=== PATIENT | female | born 1955 | race Hispanic/Latino ===

== ENCOUNTER 2025-06-01 08:02 | Observation (INO) | payer OTHER ==
[2025-05-30 11:11] VITALS: BP 134/69; PULSE 56; RESP 15; TEMP 97.9
[2025-05-30 11:17] LABS: IMMATURE GRANULOCYTE ABSOLUTE 0.01 K/uL (0-1); NUCLEATED RED BLOOD CELLS 0.0 % (0.0-0.19); PLATELET COUNT (AUTO) 242 K/uL (130-400); RED BLOOD CELL COUNT(AUTO) 4.70 MIL/uL (4.00-5.50); RED CELL DISTRIBUTION WIDTH 12.0 % (11.0-15.5); WHITE BLOOD COUNT (AUTO) 4.7 K/uL (4.8-10.8)
[2025-05-30 11:28] LABS: INR 1.05 (0.85-1.15)
[2025-05-30 11:30] LABS: CREATININE 1.1 mg/dL (0.5-1.0); GLOMERULAR FILTR. RATE CALC 54.0 mL/min (>90); GLUCOSE,RANDOM 93.0 mg/dL (70-105); SODIUM SERUM 142.0 mmol/L (136-145); UREA NITROGEN, BLOOD 12.0 mg/dL (7-18)
--- NOTE | 2025-05-30 11:55 | NUR ---
PREOP INCENTIVE SPIROMETRY INITIAL TEACHING DONE BY ISSA COX
[~2025-06-01] VITALS: Ht 167.6 cm; Wt 72.1 kg
[2025-06-01] VITALS (38 sets, daily range): BP systolic 109–147; BP diastolic 42–76; PULSE 45–66; RESP 10–20; TEMP 97.1–98.3; O2SAT 98
[~2025-06-01 08:02] MED LIST: BRIM5DRO5 OU; LATA2.5D7 OU
[2025-06-01] MEDS: LACTATED RINGERS 1000ML 1,000 ML IV ONE (08:56)
[2025-06-01] MEDS: GABAPENTIN 300 MG CAPSULE ONE (08:56)
[2025-06-01] MEDS: FAMOTIDINE 20MG VIAL IV ONE (10:17)
[2025-06-01] MEDS ORDERED: LIDOCAINE PF 100MG/5ML (2%) SYRINGE 5ML ONE (10:32)
[2025-06-01] MEDS: TRANEXAMIC ACID 1000MG/10ML ONE (11:10)
[2025-06-01] MEDS ORDERED: NEOSTIGMINE METHYLSULFATE 1MG/ML IV ONE (11:17)
[2025-06-01] MEDS ORDERED: GLYCOPYRROLATE 0.2 MG/ML 5 ML VIAL ONE (11:17)
[2025-06-01] MEDS ORDERED: PoTASSium chl 10% ELIXIR 20MEQ 20 MEQ/15 ML UDCUP PO PRN (11:30)
[2025-06-01] MEDS ORDERED: FERROUS FUMARATE 324 MG TABLET PO PRN (11:30)
[2025-06-01] MEDS ORDERED: CALCIUM CARB 500MG PO PRN (11:30)
[2025-06-01] MEDS ORDERED: HYDROcodone/APAP 5/325 1 TAB TABLET PO PRN (11:30)
--- NOTE | 2025-06-01 13:15 | OP ---
Operative Note: DATE OF PROCEDURE: 06/01/25 PREOPERATIVE DIAGNOSIS: Left knee osteoarthritis. POSTOPERATIVE DIAGNOSIS: Left knee osteoarthritis. PROCEDURE PERFORMED: Left knee total knee arthroplasty. SURGEON: Jaye Harman MD TARIFF INSPECTOR: Kathy Johnston and Alton Villagomez. ANESTHESIA: General with adductor canal block. ANESTHESIA: JANENE [place]. ESTIMATED BLOOD LOSS: 50cc. COMPLICATIONS: None. DRAINS: None. SPECIMENS REMOVED: resected bone. Not sent to pathology. IMPLANTS: Weeks and Nephew Journey II BCS size 3 Oxinium femur, size 3 tibial base plate, 35 mm patella, 11 mm polyethylene STATEMENT OF MEDICAL NECESSITY: The patient is a 69-year-old female who suffers from left knee osteoarthritis failing conservative management. After discussion of the risks, benefits, and alternatives with the patient, they voluntarily agreed to undergo the aforementioned procedure. DESCRIPTION OF PROCEDURE: Patient was properly identified in the preoperative holding area. Surgical site marking was verified and surgery consent reviewed. The patient was then taken to the operating room and placed in supine position on the OR table. After induction of general anesthesia, preoperative antibiotics were given, all bony prominences were well-padded, and a well padded tourniquet was applied but not inflated at this time. The left lower extremity was then prepped and draped in usual sterile fashion. Surgical time out was done verifying correct surgery, side, site, and location to be performed. We then began the procedure by exsanguinating the limb using an Esmarch and inflating the tourniquet to 350 mmHg. At this point, we made an anterior midline incision using a 10 blade, coming down sharply the level of the fascia. Skin flaps were elevated medially and laterally. We then obtained a clean 10 blade and performed a standard medial parapatellar arthrotomy. We excised the infrapatellar fat pad. We performed our soft tissue releases off of the tibia. We transected the ACL and removed the anterior portion of the medial & lateral meniscus. We then brought the knee into hyperflexion with the patella everted. We used our entry reamer to enter the femoral canal. We then placed our intramedullary cutting guide for our distal femoral cutting block. We then performed our distal femoral osteotomy ensuring appropriate rotation and removed the bony wafer. We then removed these pins and block and then used jig 2 to size the distal femur with the after mentioned size found. We then placed our 5-in-1 cutting block in 3 degrees of external rotation and took our 5 cuts ensuring to protect the patellar tendon and the collateral ligaments. We then removed the cutting block and our bony fragments using a curved osteotome. We then placed our PCL retractor subluxating the tibia anteriorly. Using an extra medullary tibial cutting guide, we hung the block for our proximal tibial cut taking 2 mm off the more diseased portion. Prior to pinning this block in place, we ensured appropriate varus/valgus alignment and posterior slope similar to the [place] slope of the patient's knee. We then performed our proximal tibia l osteotomy and removed the bony wafer using Bovie electrocautery to release any remaining soft tissue attachments. We then used our tibial sizing paddle and checked once more for varus & valgus alignment and found this to be appropriate. At this point, we pinned our tibial paddle in place. We then removed the PCL retractor and subluxated the tibia posteriorly while we placed our femoral trial component. We then finished preparing the notch with the reamer and box chisel. The notch portion of the trial femoral component was then placed. A posterior stabilized polyethylene, size 9 trial was placed. This was immediately increase d up to a size 10 due to laxity with varus and valgus stressing. The knee was then taken through range of motion and found to have stable full range of motion. We then placed a bump under the ankle and everted the patella to perform our freehand cut of the undersurface the patella. We then sized our patella and reamed to the lug holes for this. We placed our trial patellar comp onent and begin to take the knee through range of motion. The patella had appropriate tracking. At this point we began removing our trial components and punched the tibial keel prior to removing our tibial trial component. Final components were opened and cement was mixed on the back table while we injected local cocktail in the posterior capsule. We then thoroughly irrigated out the bone and dried the bony surfaces. We cemented our tibial component in place ensuring to remove excess cement and placed our trial polyethylene. We then cemented our femoral component in place once again taking time to ensure excess cement was removed leg was brought into full extension to help squeeze the excess cement from around the femoral component. We then brought the knee back in a flexion to remove this portion of the cement at this point we placed the ankle in a bump thoroughly irrigated off the patellar component and cemented our patellar component in standard fashion again removing excess cement. While we waited for the cement to cure, we thoroughly irrigated out the wound with normal saline. Once our cement had cured, we took the knee through a range of motion and found full and stable range of motion. We then elected to use the size 11 polyethylene and removed our trial polyethylene. We impacted our final polyethylene component in place in standard fashion and took the knee through a range of motion check once more. This was satisfactory so we began to repair the arthrotomy using #5 Ethibond and #1 Vicryl in interrupted [id number] fashion. Subcutaneous tissue was repaired using 2-0 Vicryl. Running subcuticular 3-0 Monocryl stitch with Dermabond placed over this for the skin. We then applied a foam barrier dressing and a pressure dressing consisting of 4 x 4's fluffs and an Ross wrap. The tourniquet was then deflated. Patient was awakened from anesthesia, and they were taken to the recovery room in stable condition. JAYE HARMAN MD Jun 01, 2025 13:15
--- NOTE | 2025-06-01 15:13 | HMCIMG ---
Examination: Left knee, 2 views Clinical history: Status post left total knee surgery Comparison: None Findings: AP, lateral views of the left knee are submitted. Cemented left total knee arthroplasty is in near anatomic alignment. No periprosthetic fractures appreciated. Appropriate postsurgical changes about the left knee. Knee joint effusion. Impression: Cemented left total knee arthroplasty is in near anatomic alignment with no periprosthetic fracture. Appropriate postsurgical changes about the knee joint. /[place]
[2025-06-01] MEDS: 0.9%NACL 1000ML 1,000 ML IV SCH (17:10)
--- NOTE | 2025-06-01 17:30 | NUR ---
Ortho Coordinator: Teaching regarding DVT and pneumonia prevention, pain expectations and pain management. Patient in bed, family member at bedside. B SCD sleeves in place and functioning. Incentive spirometer at bedside. Patient returned demonstrated proper use of incentive spirometer and verbalized frequency of use. Patient return demonstrated proper foot flexion and extension exercises, rationale for performing provided. Pain management strategy reviewed, pain medications reviewed. Patient instructed to perform self pain assessments every four hours, providing a numeric pain rating and type of pain to primary nurse. Patient reminded she must call for pain medication and can call at anytime. Set expectation for patient to shower, rationale provided. Requested home caregiver be present to observe shower, rationale provided. Patient intends to discharge home with home health physical therapy. Reviewed home health process. Patient and family member verbalized understanding to all instructions. Patient instructed must call for assistance to restroom overnight, rationale provided, gait belt reviewed. No additional questions or concerns at this time.
--- NOTE | 2025-06-01 18:07 | NUR ---
PT approached for Eval, RR call light on .Pt noted to be walking herself from RR with SW, no gait belt, no assist. Education provided on calling for help, and the risk of a fall. Education on pain mgt, POC and DC planning given. All questions answered. Fall alarm, ice and SCDs placed.
[2025-06-01] MEDS: HYDROcodone/APAP 5/325 1 TAB TABLET PO PRN ×2 (18:19→21:08)
[2025-06-01] MEDS: LATANOPROST 2.5 ML DROPS OU SCH (21:00)
[2025-06-01] MEDS: CYCLOBENZAPRINE HCL 10 MG TABLET PO PRN (21:10)
[2025-06-02] VITALS: BP 107/58; PULSE 68; RESP 18; TEMP 98.3
[2025-06-02 04:00] VITALS: BP 142/65; PULSE 60; RESP 19; TEMP 98.5
[2025-06-02 04:45] LABS: NUCLEATED RED BLOOD CELLS 0.0 % (0.0-0.19); PLATELET COUNT (AUTO) 202.0 K/uL (130-400); RED BLOOD CELL COUNT(AUTO) 3.45 MIL/uL (4.00-5.50); RED CELL DISTRIBUTION WIDTH 12.1 % (11.0-15.5); WHITE BLOOD COUNT (AUTO) 7.1 K/uL (4.8-10.8)
[2025-06-02 05:09] LABS: CREATININE 1.1 mg/dL (0.5-1.0); GLOMERULAR FILTR. RATE CALC 54.0 mL/min (>90); GLUCOSE,RANDOM 122.0 mg/dL (70-105); SODIUM SERUM 142.0 mmol/L (136-145); UREA NITROGEN, BLOOD 10.0 mg/dL (7-18)
[2025-06-02] MEDS: PoTASSium chloRIDE 20MEQ ER 20 MEQ ERTAB PO PRN (05:31)
[2025-06-02 08:00] VITALS: BP 96/56; PULSE 57; RESP 18; TEMP 97.7; O2SAT 99
--- NOTE | 2025-06-02 08:20 | PN ---
Ortho postop day one. This morning the patient is awake alert and oriented. She is seated out of the bed resting comfortably alternating extending and flexing of the extremity on a footstool. There is ice present. The Ross bandage has been removed. The dressing is intact. Gastrocnemius a soft nontender. Negative Homans. Vital signs have remained stable. Afebrile. Voiding on her own without difficulty and already passing gas but yet to have BM. Laboratory results reviewed. Noted to have a drop in hemoglobin and hematocrit as expected after TKA. Patient is asymptomatic at this time we will continue to observe and treat per protocol. Reinforced incentive spirometry. SCD sleeves are present in the room but not currently on. Yesterday she ambulated about 20 ft with physical therapy. She is pending further physical therapy this morning. The anticipated discharge goal is home health/PT. Assessment: Status post left TKA. Acute postoperative blood loss anemia Plan: Continue with Dr. Harman's TKA protocol and discharge planning. Acute postoperative blood loss anemia addressed with the protocol as necessary Vitals/Labs Vital Signs Date Time Temp Pulse Resp B/P (MAP) Pulse Ox O2 Delivery O2 Flow Rate FiO2 06/02/25 04:00 98.4 60 19 142/65 96 Room Air 06/01/25 20:00 0 21 Laboratory Tests 06/02/25 04:33 Medications Current Medications Cefazolin Sodium 2 gm STK-MED ONCE .ROUTE Last administered on 06/01/25at 11:15; Start 06/01/25 at 08:27; Stop 06/01/25 at 08:27; Status DC Gabapentin 300 mg STK-MED ONCE .ROUTE Last administered on 06/01/25at 08:56; Start 06/01/25 at 08:27; Stop 06/01/25 at 08:28; Status DC Lactated Ringer's 1,000 ml @ As Directed STK-MED ONCE IV Last administered on 06/01/25at 08:56; Start 06/01/25 at 08:27; Stop 06/01/25 at 08:28; Status DC Tranexamic Acid 1,000 mg STK-MED ONCE .ROUTE Last administered on 06/01/25at 11:10; Start 06/01/25 at 10:16; Stop 06/01/25 at 10:16; Status DC Ketorolac Tromethamine 30 mg STK-MED ONCE .ROUTE Last administered on 06/01/25at 11:53; Start 06/01/25 at 10:16; Stop 06/01/25 at 10:16; Status DC Ropivacaine 150 mg STK-MED ONCE .ROUTE Last administered on 06/01/25at 11:54; Start 06/01/25 at 10:16; Stop 06/01/25 at 10:17; Status DC Acetaminophen 100 ml @ As Directed STK-MED ONCE .ROUTE; Start 06/01/25 at 10:17; Stop 06/01/25 at 10:17; Status DC Famotidine 20 mg STK-MED ONCE IV; Start 06/01/25 at 10:17; Stop 06/01/25 at 10:17; Status DC Dexmedetomidine HCl 200 mcg STK-MED ONCE IV; Start 06/01/25 at 10:20; Stop 06/01/25 at 10:20; Status DC Ropivacaine 150 mg STK-MED ONCE .ROUTE; Start 06/01/25 at 10:20; Stop 06/01/25 at 10:21; Status DC Ketamine HCl 50 mg STK-MED ONCE .ROUTE; Start 06/01/25 at 10:21; Stop 06/01/25 at 10:21; Status DC Lidocaine HCl 100 mg STK-MED ONCE .ROUTE; Start 06/01/25 at 10:32; Stop 06/01/25 at 10:33; Status DC Propofol 200 mg STK-MED ONCE IV; Start 06/01/25 at 10:33; Stop 06/01/25 at 10:33; Status DC Rocuronium [place] 50 mg STK-MED ONCE .ROUTE; Start 06/01/25 at 10:33; Stop 06/01/25 at 10:33; Status DC Fentanyl Citrate 100 mcg STK-MED ONCE .ROUTE; Start 06/01/25 at 10:33; Stop 06/01/25 at 10:33; Status DC Glycopyrrolate 1 mg STK-MED ONCE .ROUTE; Start 06/01/25 at 11:17; Stop 06/01/25 at 11:17; Status DC Neostigmine Methylsulfate 10 mg STK-MED ONCE IV; Start 06/01/25 at 11:17; Stop 06/01/25 at 11:17; Status DC Sodium Chloride 1,000 ml @ 100 mls/hr Q10H IV Last administered on 06/01/25at 17:10; Start 06/01/25 at 11:30; Stop 06/02/25 at 11:29 Polyethylene Glycol 17 gm DAILY PO; Start 06/02/25 at 09:00; Stop 07/02/25 at 08:59 Bisacodyl 10 mg DAILY PRN RC; Start 06/04/25 at 11:30; Stop 07/04/25 at 11:29 Ketorolac Tromethamine 15 mg Q6H PRN IV; Start 06/02/25 at 11:30; Stop 06/07/25 at 11:29 Ferrous Fumarate 324 mg DAILY PRN PO; Start 06/01/25 at 11:30; Stop 07/01/25 at 11:29 Ondansetron HCl 4 mg Q6H PRN IVP; Start 06/01/25 at 11:30; Stop 07/01/25 at 11:29 Calcium Carbonate 500 mg Q12H PRN PO; Start 06/01/25 at 11:30; Stop 07/01/25 at 11:29 Cefazolin Sodium 2 gm Q8H IVP Last administered on 06/02/25at 00:10; Start 06/01/25 at 16:30; Stop 06/02/25 at 00:31; Status DC Cyclobenzaprine HCl 5 mg Q8H PRN PO Last administered on 06/01/25at 21:10; Start 06/01/25 at 11:30; Stop 07/01/25 at 11:29 Gabapentin 100 mg TID PO Last administered on 06/01/25at 21:07; Start 06/01/25 at 14:00; Stop 07/01/25 at 13:59 Aspirin 325 mg DAILY PO; Start 06/02/25 at 09:00; Stop 07/02/25 at 08:59 Ketorolac Tromethamine 15 mg Q8H IV Last administered on 06/02/25at 04:58; Start 06/01/25 at 11:30; Stop 06/02/25 at 03:31; Status DC Docusate Sodium 100 mg BID PO Last administered on 06/01/25at 21:07; Start 06/01/25 at 21:00; Stop 07/01/25 at 20:59 Potassium Chloride 100 ml @ 100 mls/hr AD PRN IV; Start 06/01/25 at 11:30; Stop 07/01/25 at 11:29 Potassium Chloride 20 meq AD PRN PO; Start 06/01/25 at 11:30; Stop 07/01/25 at 11:29 Potassium Chloride 20 meq AD PRN PO Last administered on 06/02/25at 05:31; Start 06/01/25 at 11:30; Stop 07/01/25 at 11:29 Tramadol HCl 50 mg Q6H PRN PO Last administered on 06/02/25at 01:54; Start 06/01/25 at 11:30; Stop 06/06/25 at 11:29 Acetaminophen/ Hydrocodone Bitart Q4H PRN PO; Start 06/01/25 at 11:30; Stop 06/01/25 at 11:30; Status DC Latanoprost 1 DROP HS OU; Start 06/01/25 at 21:00; Stop 07/01/25 at 20:59 Ketorolac Tromethamine 15 mg STK-MED ONCE .ROUTE; Start 06/01/25 at 14:02; Stop 06/01/25 at 14:03; Status DC Acetaminophen/ Hydrocodone Bitart 1 tab Q4H PRN PO Last administered on 06/01/25at 18:19; Start 06/01/25 at 18:30; Stop 06/06/25 at 18:29 Acetaminophen/ Hydrocodone Bitart 2 tab Q4H PRN PO Last administered on 06/01/25at 21:08; Start 06/01/25 at 18:30; Stop 06/06/25 at 18:29 MARIE DONOHUE NP Jun 02, 2025 08:20
[2025-06-02] MEDS: ASPIRIN 325MG EC TAB PO SCH (09:03)
--- NOTE | 2025-06-02 11:56 | NUR ---
[facility] CM MET WITH PT AND GRANDDAUGHTER THIS MORNING, INITIAL ASSESSMENT DONE. PATIENT IS INDEPENDENT PRIOR TO SURGERY, SISTER LIVES AT HOME WITH PT, PT VERBALIZED HER GRANDDAUGHTER IS ALSO HERE VISITING AND WILL BE STAYING WITH HER TEMPORARILY. DENIES ANY EQUIPMENT/SERVICES. FEELS SAFE TO GO BACK HOME, STILL DRIVE, SISTER ABLE TO ASSIST WITH TRANSPORTATION AND NEEDS NECESSARY. DISCUSSED MD RECOMMENDATIONS FOR HOME HEALTH FOR PT AND WILL NEED DME STANDARD WALKER, PT AGREEABLE, REQUESTING [facility] IF POSSIBLE WELL [facility] CHAIR IF POSSIBLE. INFORMED PT WILL INFORM [facility] OF [facility] RE[facility], BUT IT WILL BE UP TO [facility] TO APPROVE AND ASSIGN HH. PT VERBALIZED UNDERSTANDING. CONSENT SIGNED [facility] FOR [facility] ASSIGNED [facility] HEALTH AND DME. [facility] HOME W/HH AND DME ONCE APPROVED. CM TO CONTINUE TO FOLLOW UP. Addendum: 06/02/25 at 1200 by JASWINDER RAMOS LVN Amended: Links added.
[2025-06-02 12:00] VITALS: BP 112/60; PULSE 65; RESP 18; TEMP 98
--- NOTE | 2025-06-02 15:45 | NUR ---
Ortho Coordinator: Reinforced teaching. Patient in bed, ice pack to surgical knee. Patient reports just completing physical therapy. Patient reports pain controlled, reviewed pain management strategy. Patient discharging to home with home health physical therapy, discussed next steps in process. Verified pharmacy as [facility], reviewed medications she would be discharged home with, questions answered. Patient declines shower, rationale provided, patient declines. Encouraged patient to premedicate prior to physical therapy and periods of high activity while at home, to continue with incentive spirometer until presurgery activity level met, to continue foot flexion and extension exercises and to remain hydrated. Rationale provided for all. Patient verbalized understanding. No additional questions at this time. Patient passing gas, no bowel movement.
[2025-06-02 16:00] VITALS: BP 104/57; PULSE 62; RESP 19; TEMP 98
--- NOTE | 2025-06-02 16:01 | NUR ---
ABY NOTE: DME APPROVAL; PENDING APPROVAL CM RECEIVED CALL FROM BEL W/[employer], PT HAS APPROVAL FOR DME ([facility], [facility]IN1 CHAIR) [email or web address] PURCHASE [id number]. PENDING [place] APPROVAL AND ASSIGN HH, REP AWARE PT REQUESTED [facility], AT THIS TIME. CM TO CONTINUE TO FOLLOW UP. Addendum: 06/02/25 at 1602 by JASWINDER RAMOS LVN Amended: Links added.
[2025-06-02 20:00] VITALS: BP 111/61; PULSE 74; RESP 17; TEMP 98.3; O2SAT 97
[2025-06-03] VITALS: BP 107/72; PULSE 71; RESP 17; TEMP 98.4
[2025-06-03 03:43] VITALS: BP 114/62; PULSE 65; RESP 17; TEMP 98.4
[2025-06-03 08:00] VITALS: BP 101/57; PULSE 69; RESP 18; TEMP 97.6
[2025-06-03 09:57] VITALS: O2SAT 99
[2025-06-03 12:00] VITALS: BP 113/69; PULSE 70; RESP 16; TEMP 97.9
--- NOTE | 2025-06-03 13:20 | DS ---
Discharge Summary Hospital Course Summary: The patient was admitted to the hospital postoperatively on 06/01/2025 after undergoing []. They did well with routine postoperative pain control. They worked well with physical therapy. They developed some acute blood loss anemia but remained asymptomatic. The hospital course was otherwise uncomplicated. They were subsequently able to be discharged on postoperative day 2 once discharge arrangements were made with home health physical therapy. Economics Faculty Member(s): None Assessment/Plan: ASSESSMENT: [ ] PLAN: [ ] Discharge Instructions: Begin working with home health physical therapy. Dressing may be removed 06/03/2025 and left open to air. Showers ok allowing soap and water to run over the wound. Pat dry. Do not submerge wound in tub/pool. Do not apply ointments. Do not apply Betadine. Do not apply peroxide. Ice packs to decrease pain/swelling. Prescriptions have been sent to the pharmacy: *[place] 5/325mg 1-2 tab every 6 hours as needed for severe pain. (please call for refills) Cyclobenzaprine 5mg 1 tab every 8 hours as needed for muscle spasm pain. Gabapentin 100mg 1 tab every 8 hours (may discontinue if drowsy). Colace 100mg 1 tab orally twice a day as needed for constipation. Aspirin 325mg twice a day for 30 days to prevent blood clots. Follow-up visit scheduled on 06/23/2025 at 1:30 PM at [facility]. Home Medications: Reported Medications Brimonidine Tartrate (Brimonidine Tartrate) 0.2 % Drops, 1 DROP OU BID, DROP 05/30/25 Latanoprost (Latanoprost) 0.005 % Drops, 1 DROP OU HS, ML 0 Refills 05/30/25 RAMESH GRADY MD Jun 03, 2025 13:20
[2025-06-03] MEDS ORDERED: GABA100C PO (13:23)
[2025-06-03] MEDS ORDERED: DOCU-116 PO (13:23)
[2025-06-03] MEDS ORDERED: CYCL-309 PO (13:23)
[2025-06-03] MEDS ORDERED: HYDR-4060 PO (13:23)
[2025-06-03] MEDS ORDERED: ASPI-891 PO (13:23)
--- NOTE | 2025-06-03 15:54 | NUR ---
PATIENT REPORT S/W NEVIN WITH [facility]. REPORT GIVEN ALL QUESTIONS ANSWERED.
--- NOTE | 2025-06-03 15:54 | NUR ---
PATIENT DISCHARGED PERIPHERAL IV DISCONTINUED. CATHETER INTACT. DISCHARGE INSTRUCTIONS GIVEN. PRESCRIPTIONS FAXED TO PHARMACY. PATIENT AWARE TO F/U WITH DR. GRADY 06/23 AT 1:30. DRESSING REMOVED, SITE WRAPPED WITH 4X4 AND KERLIX CLEAN AND DRY. EDUCATION PROVIDED. ALL QUESTIONS ANSWERED. PATIENT TAKEN DOWN BY WHEELCHAIR.
== END 2025-06-03 15:50 | disposition home or self-care (01) ==
LOC: DAH 08:02 → DAHIP 08:03 → DAH 08:03 → 4BH 15:15
PROVIDERS: ADMIT Student in an Organized Health Care Education/Training Program; ATTEND Student in an Organized Health Care Education/Training Program
DX: M17.12 Unilateral primary osteoarthritis, left knee (principal); I10 Essential (primary) hypertension; E78.5 Hyperlipidemia, unspecified; K21.9 Gastro-esophageal reflux disease without esophagitis; Z90.710 Acquired absence of both cervix and uterus; Z86.2 Personal history of diseases of the blood and blood-forming organs and certain disorders involving the immune mechanism; Z79.899 Other long term (current) drug therapy
CPT/HCPCS: 82040; 80048 ×2; 85025; 85610; 85730; 84134; 86140; 36415 ×2; 87641; 27447; 96365; 96375; 73560; 97116 ×5; 97530 ×7; 97163; 96376; 96366; 85027; G0378 ×52; A4663; J7120; J3490 ×6; J3010; J2003; J2704; J2405; J1885 ×4; J2710; J2795 ×2; J0690 ×3; C1713 ×2; C1776 ×2; A4649 ×2; A4930 ×2; A6255; A5120; A4215; A4223 ×2; A4213; A4222; A4221; A4216